=== PATIENT | female | born 1970 | race Caucasian/White ===

== ENCOUNTER 2024-01-24 15:00 | Outpatient (RCR) | payer OTHER, SELFPAY | END 2024-01-24 19:00 | disposition home or self-care (01) | LOC: PT 15:00 | PROVIDERS: PCP Family Medicine; Referring Provider Nurse Practitioner Family; Visit Provider Nurse Practitioner Family | DX: M62.89 Other specified disorders of muscle (principal) | CPT/HCPCS: 97140; 97162; 97530 ==